=== PATIENT | female | born 1975 | race Caucasian/White ===

== ENCOUNTER → 2023-10-04 14:00 | Outpatient (REF) | payer OTHER, SELFPAY | LOC: HWRAD 14:00 | PROVIDERS: ATTENDING PHYSICIAN Orthopaedic Surgery; FAMILY PHYSICIAN Internal Medicine | DX: M89.8X6 Other specified disorders of bone, lower leg (principal); M25.572 Pain in left ankle and joints of left foot | CPT/HCPCS: 73700 ==